=== PATIENT | female | born 1975 ===

== ENCOUNTER 2022-07-04 17:47 | Inpatient (IN) ==
[~2022-07-04 17:47] MED LIST: HEPARIN/NACL 0.9% 2 UNITS/ML 2,000 UNIT/1,000 ML BAG IV ONE; HYDROmorphone 1 MG/1 ML SYRINGE ONE; MIDAZOLAM 2 MG/2 ML VIAL ONE; NITROGLYCERIN DRIP 50 MG/250 ML BOTTLE IV ONE; VERAPAMIL 5 MG/2 ML VIAL ONE
[2022-07-04] MEDS ORDERED: POTASSIUM CHLORIDE RIDER 10 MEQ/100 ML PREMIX IV ONE ×4 (17:50→18:30)
[2022-07-04] MEDS ORDERED: MAGNESIUM SULF RIDER 4 GM/100 ML PREMIX IV PRN (18:06)
[2022-07-04] MEDS ORDERED: ACETAMINOPHEN 325 MG TABLET PO PRN (18:06)
[2022-07-04] MEDS ORDERED: MAGNESIUM SULF RIDER 2 GM/50 ML PREMIX IV PRN (18:06)
[2022-07-04] MEDS ORDERED: diphenhydrAMINE CAP 25 MG CAPSULE PO PRN (18:06)
[2022-07-04] MEDS ORDERED: hydrALAZINE 20 MG/1 ML VIAL IV PRN (18:06)
[2022-07-04] MEDS ORDERED: ZALEPLON 5 MG CAPSULE PO PRN (18:06)
[2022-07-04] MEDS ORDERED: POTASSIUM CHLORIDE 20 MEQ TABLET PO ONE (18:24)
[2022-07-04] MEDS ORDERED: POTASSIUM CHLORIDE INJ 10 MEQ in SODIUM CHLORIDE 0.9% 1,000 ML IV SCH (18:30)
[2022-07-04] MEDS ORDERED: SODIUM CHLORIDE 0.9% 1,000 ML IV SCH (18:30)
[2022-07-04 20:12] LABS: Calcium 9.6 MG/DL (8.5-10.1); Osmolality,Calculated 274.7 MOS/KG (273-304)
[2022-07-04 20:34] LABS: CKMB % 7.77 %
[2022-07-04] MEDS ORDERED: MORPHINE 2 MG/1 ML SYRINGE IV ONE (20:39)
[2022-07-04 20:45] LABS: High Sensitive Troponin I* 2592.7 ng/L (0-54)
[2022-07-04] MEDS: ASCORBIC ACID 500 MG TABLET PO SCH (20:56)
[2022-07-04] MEDS: TICAGRELOR 90 MG TABLET PO SCH (20:58)
[2022-07-04] MEDS: carvediloL 6.25 MG TABLET PO SCH (20:58)
[2022-07-04] MEDS: POTASSIUM CHLORIDE 20 MEQ TABLET PO SCH (21:02)
[2022-07-04] MEDS: ROSUVASTATIN 20 MG TABLET PO SCH (21:02)
[2022-07-04] MEDS: ONDANSETRON 4 MG/2 ML VIAL IV PRN (21:39)
[2022-07-05] MEDS ORDERED: NITROGLYCERIN SL 0.4 MG TABLET SL ONE (01:57)
[2022-07-05] MEDS ORDERED: NITROGLYCERIN SL 0.4 MG TABLET SL PRN (01:57)
[2022-07-05] MEDS ORDERED: ONDANSETRON 4 MG/2 ML VIAL IV ONE (01:57)
[2022-07-05] MEDS: MORPHINE 2 MG/1 ML SYRINGE IV PRN (02:00)
[2022-07-05 02:13] LABS: Basophils # 0.1 10*3/uL (0.0-0.2); Basophils % 0.5 % (0.0-0.8); Eosinophils # 0.1 10*3/uL (0.0-0.87); Eosinophils % 0.5 % (0.00-10.9); Hematocrit 34.8 VOL% (35.7-47.0); Hemoglobin 11.7 GM/DL (12.0-16.0); Immature Granulocytes % 0.4 %; Immature Granulocytes Absolute 0.05 #; Lymphocytes # 3.1 10*3/uL (1.4-4.0); Lymphocytes % 21.5 % (21.3-54.2); Mean Corpuscular HGB Conc 33.6 GM/DL (32-36); Mean Corpuscular Volume 87.7 FL (87-102); Mean Platelet Volume 8.6 FL (9.6-12.0); Monocytes # 0.7 10*3/uL (0.11-0.8); Monocytes % 5.1 % (1.7-12.7); Platelet Count 397 T/CUMM (130-400); Red Blood Count 3.97 MC/CUMM (3.8-5.5); Red Cell Distribution Width 12.5 % (9.3-17.3)
[2022-07-05 02:35] LABS: CKMB % 11.33 %
[2022-07-05 02:40] LABS: Risk Ratio 3.17; VLDL Cholesterol 15.4 MG/DL
[2022-07-05 02:47] LABS: High Sensitive Troponin I* 8074.2 ng/L (0-54)
[2022-07-05] MEDS: ONDANSETRON 4 MG/2 ML VIAL IV PRN (07:14)
[2022-07-05 07:25] LABS: Calcium 9.4 MG/DL (8.5-10.1); Osmolality,Calculated 275.5 MOS/KG (273-304); Potassium 4.3 MMOL/L (3.5-5.1)
[2022-07-05] MEDS: ASCORBIC ACID 500 MG TABLET PO SCH ×2 (08:00→20:22)
[2022-07-05] MEDS: POTASSIUM CHLORIDE 20 MEQ TABLET PO SCH ×2 (08:01→20:22)
[2022-07-05] MEDS: carvediloL 6.25 MG TABLET PO SCH ×2 (08:01→20:22)
[2022-07-05] MEDS: LOSARTAN 25 MG TABLET PO SCH (08:01)
[2022-07-05] MEDS: ASPIRIN EC 81 MG TABLET PO SCH (08:01)
[2022-07-05] MEDS: TICAGRELOR 90 MG TABLET PO SCH ×2 (08:01→20:22)
[2022-07-05] MEDS ORDERED: ALUMINUM/MAGNES/SIMETH MAX STR 30 ML UDCUP PO PRN (10:30)
[2022-07-05 11:18] LABS: CKMB % 12.15 %
[2022-07-05] MEDS: PANTOPRAZOLE 40 MG TABLET PO SCH (12:30)
[2022-07-05] MEDS: ROSUVASTATIN 20 MG TABLET PO SCH (20:22)
[2022-07-06 04:57] LABS: Basophils % 0.2 % (0.0-0.8); Eosinophils # 0.2 10*3/uL (0.0-0.87); Eosinophils % 1.7 % (0.00-10.9); Hematocrit 37.2 VOL% (35.7-47.0); Hemoglobin 12.2 GM/DL (12.0-16.0); Immature Granulocytes % 0.4 %; Immature Granulocytes Absolute 0.05 #; Mean Corpuscular HGB Conc 32.8 GM/DL (32-36); Mean Corpuscular Volume 89.6 FL (87-102); Monocytes # 0.6 10*3/uL (0.11-0.8); Monocytes % 4.7 % (1.7-12.7); Platelet Count 417 T/CUMM (130-400); Red Blood Count 4.15 MC/CUMM (3.8-5.5); Red Cell Distribution Width 12.6 % (9.3-17.3); White Blood Count 13.33 T/CUMM (4-12)
[2022-07-06 05:17] LABS: Albumin 3.3 G/DL (3.4-5.0); Bilirubin,Total 0.8 MG/DL (0.20-1.00); Calcium 9.6 MG/DL (8.5-10.1); Osmolality,Calculated 274.7 MOS/KG (273-304); Potassium 3.8 MMOL/L (3.5-5.1); Total Protein 7.2 G/DL (6.4-8.2)
[2022-07-06 05:39] LABS: Barbiturates Screen,Urine Negative (Negative); Benzodiazepines Screen,Urine Negative (Negative); Cannabinoid Screen,Urine Negative (Negative); Opiate Screen,Urine Positive (Negative); Phencyclidine Screen,Urine Negative (Negative)
[2022-07-06] MEDS: PANTOPRAZOLE 40 MG TABLET PO SCH ×2 (07:17→08:52)
[2022-07-06] MEDS: MORPHINE 2 MG/1 ML SYRINGE IV PRN (08:01)
[2022-07-06] MEDS: TICAGRELOR 90 MG TABLET PO SCH (08:11)
[2022-07-06] MEDS: carvediloL 6.25 MG TABLET PO SCH (08:11)
[2022-07-06] MEDS: ASCORBIC ACID 500 MG TABLET PO SCH (08:11)
[2022-07-06] MEDS: POTASSIUM CHLORIDE 20 MEQ TABLET PO SCH (08:11)
[2022-07-06] MEDS: LOSARTAN 25 MG TABLET PO SCH (08:12)
[2022-07-06] MEDS: ASPIRIN EC 81 MG TABLET PO SCH (08:12)
[2022-07-06] MEDS ORDERED: KETOROLAC 30 MG/1 ML VIAL IV ONE (08:22)
== END 2022-07-06 13:12 | disposition home or self-care (01) | DRG 247 ==
LOC: N.ICU 17:47
PROVIDERS: ADMIT Internal Medicine Cardiovascular Disease; ATTEND Internal Medicine Cardiovascular Disease
PROC: CLCCHCL (ICD-10-PCS; 2022-07-04 18:15)